=== PATIENT | male | born 1985 | race Caucasian/White ===

== ENCOUNTER 2024-11-10 09:58 | Emergency (ER) | payer OTHER ==
[~2024-11-10] VITALS: Ht 175.3 cm; Wt 85.9 kg
[2024-11-10] MEDS ORDERED: BACTRIM DS TAB1 EACH PO (10:17)
[2024-11-10] MEDS ORDERED: CEPHALEXIN500 M1 PO (10:17)
[2024-11-10 10:29] VITALS: BP 126/73
== END 2024-11-10 10:30 | disposition home or self-care (01) ==
LOC: ED 09:58
DX: L02.416 Cutaneous abscess of left lower limb (principal)
CPT/HCPCS: 87070; 87186; 87205; 99283